=== PATIENT | female | born 1995 | race Caucasian/White ===

== ENCOUNTER 2016-03-15 20:46 | Emergency (ER) | payer MEDICAID ==
[~2016-03-15] VITALS: Ht 162.6 cm; Wt 79.0 kg
[~2016-03-15 20:46] MED LIST: AMOX500T PO; IBUP-232 PO; LEVO100T4 PO
[2016-03-15 21:10] VITALS: BP 129/86; PULSE 120; RESP 18; TEMP 100.1; O2SAT 99
[2016-03-15] MEDS ORDERED: diphenhydrAMINE HCL 50 MG CAP PO ONE (22:15)
[2016-03-15] MEDS ORDERED: FAMOTIDINE 20 MG TAB PO ONE (22:15)
[2016-03-15] MEDS ORDERED: predniSONE 20 MG TAB PO ONE (22:15)
--- NOTE | 2016-03-15 22:19 | PD ---
HPI Chief Complaint: Skin Problem Time Seen by Provider: 22:15 Travel History International Travel<30 days: No Contact w/Intl Traveler<30days: No Traveled to known affect area: No History of Present Illness HPI Patient comes in complaining of pruritic rash that began approximately 4 days ago on her back. Patient has since spread to her upper torso bilateral upper extremities and face. Patient denies any known new allergen exposures including but not limited to, soaps, lotions, detergents, perfumes, foods, pets , or fracture. Patient denies any respiratory involvement, nausea, vomiting, chest pain, shortness of breath, abdominal pain, sore throat, dysphagia, , fevers, or diarrhea. Denies being around anyone else with similar. PFSH Past Medical History Diminished Hearing: No Thyroid Disease: Yes (HYPOTHYROIDISM) Influenza Vaccination: No ?: Not LMP: mirena : 1 Para: 1 Miscarriage: 0 : 0 Social History Alcohol Use: Yes (RARELY) Tobacco Use: Yes (1/2 PPD) Substance Use: No Allergies-Medications (Allergen,Severity, Reaction): Coded Allergies: No Known Allergies (Unverified , 07/09/15) Reported Meds & Prescriptions Reported Meds & Active Scripts Active Pepcid (Famotidine) 20 Mg Tab 20 Mg PO BID 10 Days Prednisone (21) 10 mg tab Dose Pack (Prednisone) 10 Mg Pack 10 Mg PO DIRECTED Review of Systems Except as stated in HPI: all other systems reviewed are Neg Physical Exam Narrative GENERAL: Well-developed, overly nourished, in no acute distress, and non-ill appearing. SKIN: Warm and dry. Smooth, blanching, erythematous rash noted on torso and face. It is afebrile, nontender, without drainage, nonindurated, there is no crepitus, there is no herald patch noted. HEAD: Atraumatic. Normocephalic. EYES: Pupils equal and round. EOMI. No scleral icterus. No injection or drainage. ENT: No nasal bleeding or discharge. Mucous membranes pink and moist. NECK: Trachea midline. Supple. No nuclear rigidity. CARDIOVASCULAR: Regular rate and rhythm. No murmur appreciated. RESPIRATORY: No accessory muscle use. No respiratory distress. Clear to auscultation. Breath sounds equal bilaterally. Speaking in full sentences without difficulty. MUSCULOSKELETAL: No obvious deformities. No clubbing. No cyanosis. No edema. Full range of motion. NEUROLOGICAL: Awake and alert. No obvious cranial nerve deficits. Motor grossly within normal limits. Normal speech. PSYCHIATRIC: Appropriate mood and affect; insight and judgment normal. Data Data Last Documented VS Vital Signs Date Time Temp Pulse Resp B/P Pulse Ox O2 Delivery O2 Flow Rate FiO2 03/15/16 21:10 100.1 120 18 129/86 99 Orders Prednisone (Deltasone) (03/15/16 22:15) Diphenhydramine (Benadryl) (03/15/16 22:15) Famotidine (Pepcid) (03/15/16 22:15) [facility] Medical Decision Making Medical Screen Exam Complete: Yes Emergency Medical Condition: Yes Differential Diagnosis Allergic reaction, viral rash, scabies, pityriasis rosea, other Narrative Course Appears allergic reaction. There is no airway involvement nor difficulty swallowing. Patient looks great. The patient is tolerating fluids. The patient looks great, the findings are minimal and due to non-progression of symptoms as well as improvement of symptoms here the patient is safe to discharge home. The patient feels comfortable with plan and will return immediately if symptoms begin to worsen. The rash is not consistent with erythema multiforme at this time. The patient is to continue histamine 1 and 2 blockade as well as steroids. The patient was instructed to avoid potential precipitating factor and to follow up with their regular physician and or follow up with park services specialist for definitive allergy testing. The patient agrees with plan. Patient in no obvious distress upon re-evaluation. Patient was asked if they wanted to speak to my attending, which the patient did not wish to do at this time. Any questions/concerns in reference to patient diagnosis/condition discussed and clarified prior to patient's discharge. Reinforced sheer importance of close follow up with patient's primary physician or primary care clinic. Instructed patient to return to ED immediately, if symptoms return/ worsen. Pt showed understanding of above instructions. Further instructions and recommendations were detailed in discharge paperwork. Pt ambulated without difficulty out of ED at discharge. Diagnosis Primary Impression: Pruritic rash Patient Instructions: Acute Rash (ED), General Instructions Additional Instructions: Follow-up with your primary care physician in 2-5 days for reevaluation and possible allergy testing. Take all medication as prescribed. Use over-the- counter Benadryl or Claritin or Zyrtec as needed for symptomatic relief. Follow instructions on the packaging. Return to the emergency department if symptoms get worse. Med/Other Pt SpecificInfo: Prescription(s) given Scripts Famotidine (Pepcid)20 Mg Tab20 Mg PO BID 10 Days Ref 0 Prov:Richi Colon MD 03/15/16 Prednisone (21) 10 mg tab Dose Pack 10 Mg Pack10 Mg PO DIRECTED #1 DSPK Ref 0 Prov:Richi Colon MD 03/15/16 Disposition: 01 DISCHARGE HOME Condition: Stable Romero Contreras Mar 15, 2016 22:18
[2016-03-15] MEDS ORDERED: PRED10PA PO (22:45)
[2016-03-15] MEDS ORDERED: FAMO1TAB37 PO (22:45)
== END 2016-03-15 23:06 | disposition home or self-care (01) ==
LOC: PHED 20:46 → PHEFT 23:06
DX: L29.9 Pruritus, unspecified (principal); E03.9 Hypothyroidism, unspecified; F17.210 Nicotine dependence, cigarettes, uncomplicated
CPT/HCPCS: 99282; J7512; Q0163